=== PATIENT | female | born 1960 | race Caucasian/White ===

== ENCOUNTER 2017-04-23 08:28 | Emergency (ER) | payer OTHER ==
[~2017-04-23] VITALS: Wt 61.5 kg
[2017-04-23] MEDS ORDERED: ACYC800T57 PO (09:10)
--- NOTE | 2017-04-23 09:14 | ERD ---
ER Documentation Chief Complaint Date/Time DATE: 04/23/17 TIME: 09:12 Chief Complaint left eye redness/swelling, pt on meds HPI This 57-year-old female presents with a lesion above her left eyelid over the last week. She thought she may have got some cooking oil in her eye. She saw an urgent care who prescribed her prednisone, Bactroban and Keflex. The lesions have become scabbed and she has also developed some redness and additional lesions on her left forehead and scalp. She denies any visual changes or pain or redness of the globe or sclera. She denies any fevers, vomiting, shortness of breath or chest pain. Patient is under treatment for cancer. ROS All systems reviewed and are negative except as per history of present illness. Medications Home Meds Active Scripts Acyclovir* (Zovirax*) 800 Mg Tablet, 800 MG PO 5 TIMES DAILY for 7 Days, TAB Prov:FRANK SUTHERLAND MD 04/23/17 Allergies Allergies: Coded Allergies: No Known Allergy (Unverified , 04/23/17) PMhx/Soc Medical and Surgical Hx: pt denies Medical Hx, pt denies Surgical Hx Hx Alcohol Use: No Hx Substance Use: No Hx Tobacco Use: No Smoking Status: Never smoker Physical Exam Vitals Vital Signs Date Time Temp Pulse Resp B/P Pulse Ox O2 Delivery O2 Flow Rate FiO2 04/23/17 08:32 98.0 88 17 190/84 98 Physical Exam Const: [], No apparent distress. Head: Atraumatic Eyes: Normal Conjunctiva. No redness of the sclera. There is some dried vesicular type lesions on the left upper eyelid left forehead some tenderness of the left scalp. There is no proptosis, abnormal eye movements, periorbital swelling. ENT: Normal External Ears, Nose and Mouth. Neck: Full range of motion..~ No meningismus. Resp: Clear to auscultation bilaterally Cardio: Regular rate and rhythm, no murmurs Abd: Soft, non tender, non distended. Normal bowel sounds Skin: No petechiae or rashes Back: No midline or flank tenderness Ext: No cyanosis, or edema Neur: Awake and alert Psych: Normal Mood and Affect Procedures/MDM She presents with left forehead and eyelid lesions and scalp pain consistent with herpes zoster. There is no evidence of involvement of the eye as there is no redness or pain or visual changes. We will add acyclovir to her medication regimen which she may continue although does not appear to be a bacterial infection. Patient will referred for ophthalmology for further evaluation this week. She will return to ER for new or worsening symptoms. The patient was stable with no new complaints during the ER course. Clinically, there is no current evidence to suggest meningitis, sepsis, acute abdomen, pneumonia, acute coronary syndrome, pulmonary embolism, or any other emergent condition appearing to require further evaluation or hospitalization. The patient should certainly return for any new or worsening symptoms per the aftercare instructions. They should otherwise follow-up with her primary care doctor for reevaluation this week. Departure Diagnosis: Primary Impression: Zoster Herpes zoster complications: without complications Qualified Code: B02.9 - Herpes zoster without complication Condition: Stable Patient Instructions: Shingles (Herpes Zoster) Referrals: [facility] Hours: Sat - Sat 9:00 AM - 5:00 PM Additional Instructions: The ophthalmology for further evaluation this week. Recheck for other new or worsening symptoms. In terms of shingles usually last 2-3 weeks. Okay to continue current medication. FRANK SUTHERLAND MD Apr 23, 2017 09:14
== END 2017-04-23 09:42 | disposition home or self-care (01) ==
LOC: FTE 08:28
DX: B02.9 Zoster without complications (principal)
CPT/HCPCS: 99283